=== PATIENT | female | born 1945 | race Caucasian/White ===

== ENCOUNTER 2017-04-23 12:38 | Inpatient (IN) | payer OTHER, BC ==
[~2017-04-23] VITALS: Ht 162.6 cm; Wt 55.5 kg
[2017-04-23 13:46] LABS: BASOPHIL (%) 0.3 % (0-1); BASOPHIL COUNT 0.1 K/uL (0-0.1); EOSINOPHIL (%) 0 % (0-5); HEMATOCRIT 40.5 % (36.0-46.0); HEMOGLOBIN 13.9 G/DL (11.9-15.5); LYMPHOCYTE (%) 7.3 % (15-42); LYMPHOCYTE COUNT 1.3 K/uL (1.0-2.8); MCHC 34.3 G/DL (30.0-36.0); MCV 90.2 FL (83-99); MONOCYTE (%) 4.3 % (3-12); MONOCYTE COUNT 0.8 K/uL (0-0.8); NEUTROPHIL (%) 87.1 % (45-76); NEUTROPHIL COUNT 15.6 K/uL (1.8-6.4); PLATELET COUNT 163 K/uL (156-360); RBC DIS.WIDTH-CV 12.5 % (11.8-14.6); RBC DIS.WIDTH-SD 41.2 % (39-53); RED BLOOD COUNT 4.49 M/uL (3.80-5.20); WHITE BLOOD COUNT 17.9 K/uL (4.1-10.2)
[2017-04-23 13:51] LABS: INTER. NORMALIZED RATIO 1.4
[2017-04-23 13:57] LABS: CHLORIDE 102 mEq/L (99-109); POTASSIUM 4.1 mEq/L (3.7-5.4); SODIUM 135 mEq/L (136-147)
[2017-04-23 13:59] LABS: GLUCOSE 122 mg/dL (70-99); TOTAL PROTEIN 7.4 g/dL (6.4-8.3)
[2017-04-23 14:01] LABS: APPEARANCE SL.HAZY ((CLEAR)); BILIRUBIN NEGATIVE; BLOOD MODERATE; COLOR AMBER ((YELLOW)); GLUCOSE (STRIP) 50; KETONES 20; LEUKOCYTES TRACE; NITRITE NEGATIVE; PROTEIN (STRIP) 100; SPECIFIC GRAVITY 1.028 (1.000-1.030); UROBILINOGEN 0.2 MG/DL (0.2-1.0)
[2017-04-23 14:01] LABS: TOTAL BILIRUBIN 1.5 mg/dL (0.0-1.0)
[2017-04-23 14:03] LABS: ALKALINE PHOSPHATASE 92 IU/L (3-129); CREATININE 0.9 mg/dL (0.6-1.3); GFR ESTIMATE (CALCULATED) > 59 mL/min/
[2017-04-23 14:04] LABS: AST (GOT) 14 IU/L (2-34); UREA NITROGEN (BUN) 17 mg/dL (9-23)
[2017-04-23 14:06] LABS: ALT (GPT) 12 IU/L (3-49); LIPASE 10 U/L (1.0-51.0)
[2017-04-23 14:24] LABS: BACTERIA 1+ /HPF; EPITHELIAL CELLS 1+ /HPF; MUCUS NONE SEEN /LPF; RED BLOOD CELLS RARE /HPF (0-5); WHITE BLOOD CELLS RARE /HPF (0-5)
[2017-04-23] MEDS ORDERED: PRAVASTATIN SOD20 MG PO (15:51)
[2017-04-23] MEDS ORDERED: FISH OIL 1,0001 EAC7 PO (15:52)
[2017-04-23] MEDS ORDERED: ASCORBIC ACID500 M3 PO (15:53)
[2017-04-23] MEDS ORDERED: VITAMIN D31000 UNI2 PO (15:54)
[2017-04-23] MEDS ORDERED: NAFTIFINE HCL TP (15:55)
[2017-04-23] MEDS ORDERED: REFRESH TEARS15 ML BOTH EYES (15:55)
[2017-04-23 20:42] VITALS: BP 94/50
[2017-04-24] VITALS (7 sets, daily range): BP systolic 85–115; BP diastolic 48–60
[2017-04-24 06:54] LABS: MCH 30.9 PG (29.0-34.0); MCHC 33.1 G/DL (30.0-36.0); MCV 93.1 FL (83-99); PLATELET COUNT 131 K/uL (156-360); RBC DIS.WIDTH-CV 12.7 % (11.8-14.6); RBC DIS.WIDTH-SD 43.6 % (39-53); RED BLOOD COUNT 3.76 M/uL (3.80-5.20); WHITE BLOOD COUNT 14.1 K/uL (4.1-10.2)
[2017-04-24 07:04] LABS: HEMOGLOBIN 11.6 G/DL (11.9-15.5)
[2017-04-24 07:05] LABS: CHLORIDE 107 MEQ/L (99-109); CREATININE 0.8 MG/DL (0.6-1.3); GFR ESTIMATE (CALCULATED) > 59 mL/min/; GLUCOSE 138 mg/dL (70-99); POTASSIUM 4.3 MEQ/L (3.7-5.4); SODIUM 140 MEQ/L (136-147); UREA NITROGEN (BUN) 15 mg/dL (9-23)
[2017-04-24] MEDS ORDERED: CYANOCOBALAM1000 MCG PO (10:19)
[2017-04-25 03:39] VITALS: BP 106/55
[2017-04-25 07:59] VITALS: BP 114/60
[2017-04-25 11:51] VITALS: BP 101/57
[2017-04-25 15:18] VITALS: BP 127/57
[2017-04-25 19:57] VITALS: BP 126/61
[2017-04-25 23:52] VITALS: BP 133/64
[2017-04-26 04:02] VITALS: BP 110/53
[2017-04-26 05:30] LABS: HEMOGLOBIN 10.6 G/DL (11.9-15.5); MCH 30.7 PG (29.0-34.0); MCHC 33.1 G/DL (30.0-36.0); MCV 92.8 FL (83-99); RBC DIS.WIDTH-SD 44.4 % (39-53); RED BLOOD COUNT 3.45 M/uL (3.80-5.20); WHITE BLOOD COUNT 10.1 K/uL (4.1-10.2)
[2017-04-26 05:57] LABS: CHLORIDE 114 MEQ/L (99-109); CREATININE 0.7 MG/DL (0.6-1.3); GFR ESTIMATE (CALCULATED) > 59 mL/min/; GLUCOSE 82 mg/dL (70-99); POTASSIUM 3.4 MEQ/L (3.7-5.4); SODIUM 144 MEQ/L (136-147); UREA NITROGEN (BUN) 16 mg/dL (9-23)
[2017-04-26 05:59] LABS: PLATELET COUNT 180 K/uL (156-360)
[2017-04-26 07:54] VITALS: BP 116/66
[2017-04-26 16:23] VITALS: BP 126/58
[2017-04-26 23:12] VITALS: BP 152/67
[2017-04-27 07:08] LABS: HEMATOCRIT 31.3 % (36.0-46.0); HEMOGLOBIN 10.4 G/DL (11.9-15.5); MCH 30.1 PG (29.0-34.0); MCHC 33.2 G/DL (30.0-36.0); MCV 90.7 FL (83-99); PLATELET COUNT 202 K/uL (156-360); RBC DIS.WIDTH-CV 12.7 % (11.8-14.6); RBC DIS.WIDTH-SD 41.8 % (39-53); RED BLOOD COUNT 3.45 M/uL (3.80-5.20); WHITE BLOOD COUNT 9.7 K/uL (4.1-10.2)
[2017-04-27 07:39] LABS: CHLORIDE 112 MEQ/L (99-109); CREATININE 0.6 MG/DL (0.6-1.3); GFR ESTIMATE (CALCULATED) > 59 mL/min/; SODIUM 142 MEQ/L (136-147); UREA NITROGEN (BUN) 9 mg/dL (9-23)
[2017-04-27 07:40] LABS: GLUCOSE 104 mg/dL (70-99); POTASSIUM 4.1 MEQ/L (3.7-5.4)
[2017-04-27 08:00] VITALS: BP 124/66
[2017-04-27 16:30] VITALS: BP 130/60
[2017-04-27 23:38] VITALS: BP 136/63
[2017-04-28 07:43] LABS: HEMATOCRIT 31.3 % (36.0-46.0); HEMOGLOBIN 10.5 G/DL (11.9-15.5); MCHC 33.5 G/DL (30.0-36.0); MCV 89.4 FL (83-99); NRBC (%) 0.2 /100 WBC (0-0); PLATELET COUNT 226 K/uL (156-360); RBC DIS.WIDTH-CV 12.6 % (11.8-14.6); RBC DIS.WIDTH-SD 41.4 % (39-53); WHITE BLOOD COUNT 9.8 K/uL (4.1-10.2)
[2017-04-28 08:00] VITALS: BP 113/62
[2017-04-28 08:04] LABS: CHLORIDE 107 MEQ/L (99-109); CREATININE 0.6 MG/DL (0.6-1.3); GFR ESTIMATE (CALCULATED) > 59 mL/min/; GLUCOSE 76 mg/dL (70-99); MAGNESIUM 1.8 mg/dl (1.3-2.7); PHOSPHORUS 2.3 mg/dL (2.5-4.9); SODIUM 139 MEQ/L (136-147); UREA NITROGEN (BUN) 7 mg/dL (9-23)
[2017-04-28 16:00] VITALS: BP 131/58
[2017-04-28 23:00] VITALS: BP 158/73
[2017-04-29 07:00] VITALS: BP 114/62
[2017-04-29 15:29] LABS: C DIFF TOXIN NEGATIVE (NEGATIVE)
[2017-04-29 16:13] VITALS: BP 110/60
[2017-04-29 22:32] VITALS: BP 121/59
[2017-04-30 07:43] VITALS: BP 130/67
[2017-04-30 11:33] VITALS: BP 112/55
[2017-04-30 15:29] VITALS: BP 118/58
[2017-05-01] MEDS ORDERED: AMOX TR-K CLV1 EAC4 PO (09:57)
[2017-05-01] MEDS ORDERED: FLORASTOR250 MG PO (09:57)
[2017-05-01] MEDS ORDERED: HYDROCODON-ACE1 EAC7 PO (09:57)
[2017-05-01] MEDS ORDERED: MYLICON,MYLANTA80 MG PO (09:57)
[2017-05-01] MEDS ORDERED: DOCUSATE SODIU100 MG PO (09:57)
[2017-05-01] MEDS ORDERED: MOTRIN600 MG PO (09:59)
== END 2017-05-01 11:40 | disposition home or self-care (01) | DRG 330 ==
LOC: EME 12:38 → SDC 17:32 → 2SOUTH 19:23 → 2EAST 19:23 → ENRESERV 19:38 → 2EAST 20:15
PROVIDERS: Emergency Medicine; Surgery; Thoracic Surgery (Cardiothoracic Vascular Surgery)
PROC: 3E1M38Z Irrigation of Peritoneal Cavity using Irrigating Substance, Percutaneous Approach (ICD-10-PCS; principal; 2017-04-23)
PROC: 0DTH0ZZ Resection of Cecum, Open Approach (ICD-10-PCS; principal; 2017-04-23)
PROC: 0DTJ0ZZ Resection of Appendix, Open Approach (ICD-10-PCS; principal; 2017-04-23)
DX: K35.3 Acute appendicitis with localized peritonitis (principal); I96 Gangrene, not elsewhere classified; K56.7 Ileus, unspecified; E87.1 Hypo-osmolality and hyponatremia; E78.5 Hyperlipidemia, unspecified
CPT/HCPCS: 74018; 74177; 80048; 80053; 81003; 83690; 83735; 84100; 85025; 85027; 85610; 87070; 87075; 87076; 87077; 87185; 87186; 87205; 87493; 88304; 93005; 99281; 99285; J0131; J0330; J1100; J1335; J1644; J1885; J2405; J2543; J3010; J7030; J7050